=== PATIENT | male | born 1980 | race Caucasian/White ===

== ENCOUNTER 2016-10-24 03:26 | Emergency (ER) | payer OTHER ==
[2016-10-24 03:38] VITALS: TEMP 98.5
[2016-10-24] MEDS ORDERED: KETOROLAC 30 MG/ML 1 ML VIAL IVP STA ×2 (03:47→05:06)
[2016-10-24] MEDS ORDERED: ORPHENADRINE 30 MG/ML 2 ML VIAL IVP STA (03:48)
--- NOTE | 2016-10-24 04:03 | ED ---
Back Pain HPI - General Chief Complaint: Back Pain/Injury Stated Complaint: back pain Time Seen by Provider: 10/24/16 03:30 Source: patient, RN notes reviewed Limitations: no limitations - History of Present Illness Initial Comments: Is a 36-year-old male who states that around 1 to 1:30 yesterday afternoon he placed a large beam he believes 10 x 10 up over his left shoulder when he twisted he developed severe pain to the left low back and flank area. He states it radiates down into his left buttock. He also states he has some slight numbness to the anterior groin and the left denies any bulges however denies any loss of function to his upper or lower extremities no cough fevers chills sweats shortness breath or other symptoms. He has no prior back history. MD Complaint: back pain, back injury - Related Data Previous Rx's Medication Instructions Recorded Cyclobenzaprine [Flexeril] 10 mg PO TID #14 tab 10/24/16 Hydrocodone/Acetaminophen [[place] 1 each PO Q6HR PRN #20 tab 10/24/16 5-325] Ibuprofen [Motrin] 800 mg PO Q6HR PRN #20 tab 10/24/16 Allergies Allergy/AdvReac Type Severity Reaction Status Date / Time No Known Allergies Allergy Verified 10/24/16 03:38 Review of Systems ROS Statement: Those systems with pertinent positive or pertinent negative responses have been documented in the HPI. ROS Other: All systems not noted in ROS Statement are negative. Past Medical History Additional Past Medical History / Comment(s): MRSA 2011 left side of body History of Any Multi-Drug Resistant Organisms: MRSA Date of last positivie culture/infection: 2011 MDRO Source:: Left side of Body Additional Past Surgical History / Comment(s): Visectomy Past Psychological History: No Psychological Hx Reported Smoking Status: Current every day smoker Past Alcohol Use History: Occasional Past Drug Use History: None Reported General Exam - General Exam Comments Initial Comments: Is a well-developed well-nourished awake alert oriented 3 male he does appear to be in distress Limitations: no limitations General appearance: alert, in distress Head exam: Present: atraumatic, normocephalic, normal inspection Eye exam: Present: normal appearance, PERRL, EOMI. Absent: scleral icterus, conjunctival injection, periorbital swelling ENT exam: Present: normal exam, mucous membranes moist Neck exam: Present: normal inspection. Absent: tenderness, meningismus, lymphadenopathy Respiratory exam: Present: normal lung sounds bilaterally. Absent: respiratory distress, wheezes, rales, rhonchi, stridor Cardiovascular Exam: Present: regular rate, normal rhythm, normal heart sounds. Absent: systolic murmur, diastolic murmur, rubs, gallop, clicks GI/Abdominal exam: Present: soft, normal bowel sounds. Absent: distended, tenderness, guarding, rebound, rigid Rectal exam: Present: deferred Extremities exam: Present: normal inspection, full ROM, normal capillary refill. Absent: tenderness, pedal edema, joint swelling, calf tenderness Back exam: Present: normal inspection, tenderness, muscle spasm, paraspinal tenderness. Absent: vertebral tenderness (Pain to the left paraspinous muscles at the mid to lower lumbar region with some left buttock tenderness palpation. This is over the region of the sciatica with.) Neurological exam: Present: alert, oriented X3, CN II-XII intact Psychiatric exam: Present: normal affect, normal mood Skin exam: Present: warm, dry, intact, normal color. Absent: rash Course Vital Signs 10/24/16 03:34 Temperature 98.5 F Pulse Rate 105 H Respiratory 20 Rate Blood Pressure 123/75 O2 Sat by Pulse 97 Oximetry - Reevaluation(s) Reevaluation #1: 10/24/16 05:07 Patient states his pain is slightly improved is down to about a 7-1/2 when it originally started at 9/10. Medical Decision Making - Medical Decision Making The patient is feeling much improved and will be discharged home on appropriate medication is a follow-up with his doctor and return when necessary - Radiology Data Radiology results: report reviewed (I did review the imaging and reports no acute findings.), image reviewed Disposition Clinical Impression: Mechanical back pain, Strain of lumbar region Disposition: HOME SELF-CARE Condition: Good Instructions: Acute Low Back Pain (ED), Lower Back Exercises (ED), Low Back Strain (ED) Prescriptions: Cyclobenzaprine [Flexeril] 10 mg PO TID #14 tab Hydrocodone/Acetaminophen [[place] 5-325] 1 each PO Q6HR PRN #20 tab PRN Reason: Pain Ibuprofen [Motrin] 800 mg PO Q6HR PRN #20 tab PRN Reason: Pain
--- NOTE | 2016-10-24 04:52 | XR ---
EXAM: XR Chest, 2 Views. CLINICAL HISTORY: Reason: cough TECHNIQUE: Frontal and lateral views of the chest. COMPARISON: No relevant prior studies available. FINDINGS: Lungs: Unremarkable. No consolidation. Pleural space: Unremarkable. No pneumothorax. Heart: Unremarkable. No cardiomegaly. Mediastinum: Unremarkable. Bones/joints: Unremarkable. IMPRESSION: Normal chest
--- NOTE | 2016-10-24 04:53 | XR ---
EXAM: XR Lumbar Spine, 2 or 3 Views. CLINICAL HISTORY: Reason: Pain TECHNIQUE: Frontal and lateral views of the lumbar spine. COMPARISON: No relevant prior studies available. FINDINGS: Vertebrae: Unremarkable. No acute fracture. Normal alignment. Disc spaces: No acute findings. No significant narrowing. Soft tissues: Unremarkable. IMPRESSION: Normal lumbar spine
[2016-10-24] MEDS ORDERED: HYDROmorphone 1 MG/ML 1 ML SYRINGE IVP STA (05:06)
[2016-10-24] MEDS ORDERED: LORazepam 2 MG/ML SYRINGE IV STA (05:07)
[2016-10-24 06:01] VITALS: BP 116/69; PULSE 91; RESP 18
== END 2016-10-24 05:59 | disposition home or self-care (01) ==
LOC: EC 03:26
DX: S39.012A Strain of muscle, fascia and tendon of lower back, initial encounter (principal); R10.9 Unspecified abdominal pain; F17.200 Nicotine dependence, unspecified, uncomplicated; X50.1XXA Overexertion from prolonged static or awkward postures, initial encounter; Y93.89 Activity, other specified
CPT/HCPCS: 71020; 72110; 99283; 96374; 96375 ×3; 96376; J2060; J2360; J1885; J1170

== ENCOUNTER → 2018-02-17 | Outpatient (CLI) | payer OTHER ==
--- NOTE | 2018-02-17 16:35 | MR ---
EXAMINATION TYPE: MR lumbar spine wo con DATE OF EXAM: 02/17/2018 COMPARISON: 10/24/2016 lumbar spine radiographs HISTORY: Low back pain, Rt leg pain and numbness TECHNIQUE: Multiplanar, multisequence images of the lumbar spine were acquired. FINDINGS: The lumbar spine vertebral bodies maintain normal vertebral body heights and alignment. Dis c desiccation is seen at L4-L5 and L5-S1. Bone marrow signal is unremarkable other than a small verte bral body hemangioma of L3 and degenerative endplate changes at L4-L5. Conus medullaris is unremarkab le terminating at L1. Paraspinal musculature is within normal limits. Visualized abdominal aorta appe ars of normal caliber. L1-L2: Normal disc appearance without desiccation. No herniation, protrusion or disc bulging. No ca nal stenosis is present. Foramina are patent bilaterally. L2-L3: Normal disc appearance without desiccation. No herniation, protrusion or disc bulging. No ca nal stenosis is present. Foramina are patent bilaterally. L3-L4: Normal disc appearance without desiccation. No herniation, protrusion or disc bulging. No ca nal stenosis is present. Foramina are patent bilaterally. L4-L5: There is a right paracentral disc herniation/protrusion extending into the lateral recess and abutting the ligamentum flavum posteriorly creating compression on the forming L5 nerve root, however the right neural foramen does appear patent and there is no impression upon the exiting L4 nerve alina t. There is overall mild spinal canal stenosis at this level. L5-S1: There is disc desiccation and broad-based disc bulge without focality. Facet arthropathy is al so seen at this level. There is mild resultant bilateral neural foraminal narrowing. No significant s jett canal stenosis. Lumbar segments are intact. No paraspinal masses are identified. Conus medullaris has a normal appe arance. IMPRESSION: 1. Right paracentral disc herniation extending into the lateral recess and impressing upon the formin g L5 nerve root without extent into the neural foramen and therefore no impression on the exiting L4 nerve root. This does result in mild spinal canal stenosis at this level and significantly impresses upon the lateral recess. 2. Disc desiccation at L5-S1 and broad-based disc bulge resulting mild bilateral neural foraminal vilma rowing.
== END | disposition home or self-care (01) ==
LOC: RADMRIMAIN 15:46
PROVIDERS: ATTEND Family Medicine
DX: M48.061 Spinal stenosis, lumbar region without neurogenic claudication (principal); M99.73 Connective tissue and disc stenosis of intervertebral foramina of lumbar region; M51.26 Other intervertebral disc displacement, lumbar region
CPT/HCPCS: 72148